=== PATIENT | female | born 2000 | race Caucasian/White ===

== ENCOUNTER 2022-01-14 14:17 | Emergency (ER) | payer OTHER, SELFPAY ==
--- NOTE | ~2022-01-14 | CT_ITS ---
EXAMINATION: CT abdomen pelvis w con INDICATION: Constipation TECHNIQUE: Computed tomographic images of the abdomen and pelvis were obtained after the administrati on of 100 cc of Omnipaque 350 intravenous contrast. The dose-length product (DLP) was 321.48 mGy-cm. Automated exposure control and iterative reconstruction technique were employed. COMPARISON: None available FINDINGS: The lung bases are clear. The heart size is normal. The liver, spleen, pancreas, gallbladde r, and adrenal glands are normal. The kidneys are unremarkable. No pathologically enlarged abdominal or pelvic lymph nodes are identified. There is liquid stool throughout the colon to the level of the rectum. There is no free intraperitoneal gas or evidence of bowel obstruction. The colon is located i n the left abdomen in the small bowel in the right, consistent with history of malrotation. The visua lized osseous structures are unremarkable. IMPRESSION: 1. Liquid stool throughout the colon, consistent with diarrhea. Reviewed, dictated and finalized at location F.
--- NOTE | ~2022-01-14 | XR_ITS ---
EXAMINATION: XR abdomen/kub 1V INDICATION: Abdominal pain, chronic constipation TECHNIQUE: Supine views of the abdomen were obtained on 2 radiographs. COMPARISON: None FINDINGS: The bowel gas pattern is normal. There is a normal volume of colonic stool. There are no di lated loops of bowel. No free intraperitoneal gas is identified. The visualized osseous structures ar e unremarkable. IMPRESSION: 1. Unremarkable bowel gas pattern. Reviewed, dictated and finalized at location F.
[2022-01-14 14:21] VITALS: BP 136/92; PULSE 69; RESP 18; TEMP 36.4; O2SAT 97
[2022-01-14] MEDS: SODIUM CHLORIDE 0.9% IV 1,000 ML 999 ML IV CONT (15:28)
[2022-01-14] MEDS: ONDANSETRON INJ 4 MG/2 ML VIAL IV PUSH (15:28)
[2022-01-14 15:29] LABS: Basophils Percent Auto 0.5 % (0.2-1.2); Eosinophils Absolute Auto 0.1 K/mm3 (0-0.3); Eosinophils Percent Auto 1.7 % (0-4.4); Hematocrit 36.3 % (37.0-47.0); Hemoglobin 12.3 g/dL (12.0-15.0); Immature Granulocyte Absolute 0.03 K/mm3 (0.00-0.031); Immature Granulocyte Percent A 0.4 % (0-0.5); Lymphocytes Absolute Auto 2.34 K/mm3 (0.9-3.2); Lymphocytes Percent Auto 28.1 % (18.3-44.2); Mean Corpuscular HGB Conc 33.9 g/dl (32-36); Mean Corpuscular Hemoglobin 30.5 pg (26-34); Mean Corpuscular Volume 90.1 fl (80-100); Mean Platelet Volume 10.8 fl (7.4-10.4); Monocytes Absolute Auto 0.5 K/mm3 (0.1-0.6); Monocytes Percent Auto 6.2 % (2.6-8.5); Neutrophils Absolute Auto 5.3 K/mm3 (1.3-6.7); Neutrophils Percent Auto 63.1 % (45.5-73.1); Platelet Count Result 252 k/mm3 (150-375); Red Blood Count 4.03 M/mm3 (4.2-5.4); Red Cell Distribution Width 13.1 % (11.5-14.5); White Blood Count 8.3 K/mm3 (4.5-10.0)
[2022-01-14] MEDS: MORPHINE SULFATE (*CRX) 2 MG/ML INJ 1 MG IV PUSH (15:29)
[2022-01-14 15:34] LABS: Appearance Urine Clear (Clear); Bilirubin Urine 2+ (Negative); Blood Urine Trace-lysed (Negative); Color Urine Yellow (Yellow); Glucose Urine UA Negative (Negative); Ketones Urine 2+ mg/dL (Negative); Leukocyte Esterase Ur Negative LEU/UL (Negative); Nitrate Urine Negative (Negative); Protein Urine 1+ mg/dL (Negative); Specific Grav Ur >= 1.030 (1.001-1.035); pH Urine 5.5 (5.0-9.0)
[2022-01-14 15:41] LABS: Alanine Aminotransferase 29 U/L (4-35); Albumin Level 4.3 g/dL (3.5-5.1); Alkaline Phosphatase 49 U/L (38-126); Anion Gap 8 mmol/L (8-16); Aspartate Amino Transferase 25 U/L (14-36); Bilirubin,Total 0.8 mg/dL (0.2-1.3); Blood Urea Nitrogen 12 mg/dL (7-17); Calcium 8.6 mg/dL (8.4-10.2); Carbon Dioxide 23 mmol/L (22-30); Chloride 105 mmol/L (98-107); Estimated CRCL calculation 96 ml/min; Estimated Glomerular Filt Rate > 60; Glucose 89 mg/dL (65-110); Lipase 48 U/L (23-300); Potassium 3.5 mmol/L (3.4-5.0); Sodium 136 mmol/L (137-145)
[2022-01-14 16:01] LABS: Mucus Urine Heavy /lpf; RBC Urine 0-2 /hpf (0-2); Squamous Epithelial Cell Urine Many /hpf (Few); WBC Urine 0-3 /hpf
[2022-01-14 16:02] LABS: Add Urine Microscopic? YES
--- NOTE | 2022-01-14 18:54 | ED.ABDPAIN ---
HPI - Abdominal Pain General Chief Complaint: Abdominal Pain Stated Complaint: build up of stool Time Seen by Provider: 01/14/22 14:35 Source: patient Mode of arrival: ambulatory History of Present Illness HPI narrative: 21-year-old female presents today with complaints of left upper abdominal pain and decreased bowel movement times over a week. Patient seen in a previous ER about a week and a half ago for similar symptoms. Patient states she increase her MiraLAX to once a day and started taking fiber but has had minimal results. Patient states she has had nausea with vomiting all day and has not been able to keep anything down. Patient with history at 5 days old of abdominal surgery for a malrotation. Related Data Allergies Allergy/AdvReac Type Severity Reaction Status Date / Time No Known Allergies Allergy Verified 01/14/22 15:19 Review of Systems Review of Systems: CONSTITUTIONAL: Denies fever, chills, or sweats. EYES: Denies visual changes, redness, or discharge. ENT: Denies rhinorrhea, congestion, sore throat, or otalgia. CARDIOVASCULAR: Denies chest pain, palpitations, or edema. RESPIRATORY: Denies cough or dyspnea. GASTROINTESTINAL: abdominal pain, nausea, vomiting. Denies diarrhea. GENITOURINARY: Denies dysuria or hematuria. SKIN: Denies rash or itching. MUSCULOSKELETAL: Denies back pain, joint pain, or myalgia. NEUROLOGIC: Denies headache, numbness, dizziness, or weakness. PSYCHIATRIC: Denies anxiety or depression. Exam Narrative: GENERAL: Well-appearing, well-nourished, and in no acute distress. HEAD: Normocephalic, atraumatic. EYES: PERRLA and EOMI. ENT: Nares clear, no rhinorrhea or epistaxis. Mucous membranes moist. Oropharynx without tonsillar hypertrophy exudate or other lesions. Bilateral TMs pearly sheth nonbulging NECK: Supple. No adenopathy or masses. No carotid bruits or JVD CHEST: Clear to auscultation. No respiratory distress. No wheezes rales or rhonchi HEART: Regular rate and rhythm. No murmur heard. Normal peripheral pulses. ABDOMEN: Generalized abdominal tenderness. Soft, nondistended, normal active bowel sounds. EXTREMITIES: Normal range of motion. No edema. SKIN: Warm, dry, no rash. NEURO: No focal deficits. Alert and oriented x3. PSYCH: Normal mood and affect. Course Course Emergency Course: Abdominal x-ray shows no obstruction. Patient tolerated soapsuds enema without difficulty but had no output from enema. CT ordered. CT showed liquid stool throughout the colon. Patient still with no bowel movement after enema. Will give mag citrate and discharge patient Vital Signs Vital signs: Vital Signs Temperature 36.4 C 01/14/22 14:21 Pulse Rate 69 01/14/22 14:21 Respiratory Rate 18 01/14/22 14:21 Blood Pressure 136/92 H 01/14/22 14:21 Pulse Oximetry 97 01/14/22 14:21 Temperature 36.4 C 01/14/22 14:21 Pulse Rate 69 01/14/22 14:21 Respiratory Rate 18 01/14/22 14:21 Blood Pressure 136/92 H 01/14/22 14:21 Pulse Oximetry 97 01/14/22 14:21 MDM - Abdominal Pain MDM Narrative Medical decision making narrative: HPI as noted. Patient with history of abdominal surgery. Abdomen is not acute. WBCs 8.3. Urine without signs of infection. X-ray showed no obstruction. Enema without results. CT ordered no acute processes noted. Patient to be discharged with magnesium citrate and follow-up with primary. Lab Data Result diagrams: 01/14/22 15:16 01/14/22 15:16 Labs: Lab Results 01/14/22 01/14/22 01/14/22 Range/Units 15:16 15:16 15:16 WBC 8.3 (4.5-10.0) K/mm3 RBC 4.03 L (4.2-5.4) M/mm3 Hgb 12.3 (12.0-15.0) g/dL Hct 36.3 L (37.0-47.0) % MCV 90.1 (80-100) fl MCH 30.5 (26-34) pg MCHC 33.9 (32-36) g/dl RDW 13.1 (11.5-14.5) % Plt Count 252 (150-375) k/mm3 MPV 10.8 H (7.4-10.4) fl Immature Gran % (Auto) 0.4 (0-0.5) % Neut % (Auto) 63.1 (45.5-73.1) % Lymph % (Auto) 2
[2022-01-14] MEDS: MAGNESIUM CITRATE 300 ML BTL PO (19:36)
== END 2022-01-14 19:30 | disposition home or self-care (01) ==
PROVIDERS: Emergency Provider Nurse Practitioner Family; PCP Nurse Practitioner Family
DX: K59.00 Constipation, unspecified (principal)
CPT/HCPCS: 36415; 74018; 74177; 80053; 81001; 81025; 83690; 85025; 96361; 96374; 96375; 99284; A9270; J2270; J2405; J7030; Q9967